=== PATIENT | female | born 1975 | race Caucasian/White ===

== ENCOUNTER → 2023-05-20 09:33 | Outpatient (REF) | payer BC, SELFPAY | LOC: HWWDC 09:33 | PROVIDERS: ATTENDING PHYSICIAN Obstetrics & Gynecology; FAMILY PHYSICIAN Nurse Practitioner Family | DX: Z12.31 Encounter for screening mammogram for malignant neoplasm of breast (principal) | CPT/HCPCS: 77063; 77067 ==

== ENCOUNTER → 2023-08-07 07:24 | Outpatient (REF) | payer BC, SELFPAY | LOC: MRI 3T 07:24 | PROVIDERS: ATTENDING PHYSICIAN Urology; FAMILY PHYSICIAN Family Medicine | DX: M62.89 Other specified disorders of muscle (principal); N32.0 Bladder-neck obstruction; R93.49 Abnormal radiologic findings on diagnostic imaging of other urinary organs; Z22.322 Carrier or suspected carrier of Methicillin resistant Staphylococcus aureus | CPT/HCPCS: 36415; 72197; 87070; A9575 ==

== ENCOUNTER → 2023-08-12 09:10 | Outpatient (REF) | payer BC, SELFPAY ==
[2023-08-12 10:45] LABS: Erythrocyte Sed Rate 16 mm/hour (0-20)
[2023-08-12 10:49] LABS: Free T4 0.88 ng/dl (0.78-2.19)
[2023-08-12 11:03] LABS: TSH 2.93 uIU/ml (0.47-4.68)
== END ==
LOC: REG 09:10
PROVIDERS: ATTENDING PHYSICIAN Urology; FAMILY PHYSICIAN Family Medicine; REFERRING PHYSICIAN Specialist
DX: L29.8 Other pruritus (principal); Z22.322 Carrier or suspected carrier of Methicillin resistant Staphylococcus aureus
CPT/HCPCS: 36415; 84439; 84443; 85652; 87070

== ENCOUNTER 2023-09-15 06:37 | Day surgery (SDC) | payer BC, SELFPAY ==
[2023-09-09 09:21] VITALS: BMI 26.2
[2023-09-09 10:18] LABS: INR 0.99; PT 12.9 Sec (11.4-14.6)
[2023-09-09 10:19] LABS: APTT 26.1 Sec (23.4-35.0)
[2023-09-09 10:20] LABS: % Basophils 0.6 % (0-2); % Eosinophils 1.5 % (0-6); % Immature Granulocytes 0.4 % (0-0.5); % Lymphocytes 33.8 % (20.5-51.1); % Monocytes 8.6 % (1.7-9.3); % Neutrophils 55.1 % (42.2-75.2); Absolute Eosinophils 0.1 10^3/uL (0-0.7); Absolute Lymphocytes 2.4 10^3/uL (1.2-3.4); Absolute Monocytes 0.6 10^3/uL (0.1-0.6); Hematocrit 41.4 % (37.0-47.0); Hemoglobin 13.4 g/dL (12.0-16.0); Mean Corp Hgb Conc. 32.4 g/dL (33.0-37.0); Mean Corpuscular Hgb 27.4 pg (27.0-31.0); Mean Corpuscular Volume 84.7 fL (81.0-99.0); Mean Platelet Volume 10.4 fL (7.4-10.4); Nucleated Red Blood Cells % 0 %; Platelet Count 351 10^3/uL (130-400); Red Blood Cell Count 4.89 10^6/uL (4.20-5.40); Red Cell Dist. Width 14.4 % (11.5-14.5); White Blood Cell Count 7.2 10^3/uL (4.8-10.8)
[2023-09-09 10:53] LABS: Blood Urea Nitrogen 11 mg/dl (7-17); Calcium 9.1 mg/dl (8.4-10.2); Carbon Dioxide 23 mmol/L (22-30); Chloride 105 mmol/L (98-107); Estimated Creatinine Clearance 114 ml/min; Glucose 77 mg/dl (70-99); Potassium 4.5 mmol/L (3.5-5.1); Sodium 135 mmol/L (135-145); eGFR > 60.00
[2023-09-15 10:57] VITALS: BP 124/83; BMI 26.2
[2023-09-15] MEDS: NORMOSOL-R 1000 IV (11:12)
[2023-09-15 12:49] VITALS: BP 121/74
[2023-09-15 13:00] VITALS: BP 121/78
[2023-09-15 13:15] VITALS: BP 115/84
[2023-09-15 13:23] VITALS: BP 133/82
== END 2023-09-15 13:35 | disposition home or self-care (01) ==
LOC: SDS 06:37
PROVIDERS: ATTENDING PHYSICIAN Urology; FAMILY PHYSICIAN Family Medicine; OTHER PHYSICIAN Obstetrics & Gynecology
DX: R39.15 Urgency of urination (principal); R35.0 Frequency of micturition; M62.89 Other specified disorders of muscle
CPT/HCPCS: 64590; 64561; 36415; 72170; 76000; 80048; 85025; 85610; 85730; 93005; C1767; C1778; C1787; L8681

== ENCOUNTER → 2024-05-21 10:36 | Outpatient (REF) | payer BC, SELFPAY | LOC: HWWDC 10:36 | PROVIDERS: ATTENDING PHYSICIAN Obstetrics & Gynecology; FAMILY PHYSICIAN Family Medicine; REFERRING PHYSICIAN Obstetrics & Gynecology | DX: Z12.31 Encounter for screening mammogram for malignant neoplasm of breast (principal) | CPT/HCPCS: 77063; 77067 ==